=== PATIENT | female | born 1995 | race Hispanic/Latino ===

== ENCOUNTER 2020-10-11 08:03 | Day surgery (SDC) | payer OTHER ==
[2020-10-07 10:45] VITALS: BP 109/71
[2020-10-07 10:58] LABS: BASOPHILS % (AUTO) 0.3 % (0.0-5.0); EOSINOPHILS % (AUTO) 0.4 % (0.0-8.0); LYMPHOCYTES % (AUTO) 17.5 % (21.0-51.0); MEAN CORPUSCULAR HEMOGLOBIN 29.9 pg (27.0-33.0); MEAN CORPUSCULAR HGB CONC 33.3 g/dL (32.0-36.0); MEAN CORPUSCULAR VOLUME 89.9 fL (79-99); MONOCYTES % (AUTO) 5.7 % (3.0-13.0); NEUTROPHILS % (AUTO) 75.8 % (40.0-77.0); PLATELET COUNT (AUTO) 240 K/uL (130-400); RED BLOOD CELL COUNT(AUTO) 4.45 MIL/uL (4.00-5.50); RED CELL DISTRIBUTION WIDTH 12.2 % (11.0-15.5); WHITE BLOOD COUNT (AUTO) 6.9 K/uL (4.8-10.8)
[2020-10-07 11:10] LABS: ALBUMIN 4.2 g/dL (3.5-5.0); BILIRUBIN,TOTAL 0.5 mg/dL (0.2-1.0); CREATININE 0.6 mg/dL (0.5-1.5); POTASSIUM 4.3 mmol/L (3.5-5.1); TOTAL PROTEIN, SERUM 8.1 g/dL (6.0-8.3)
[2020-10-11] VITALS (16 sets, daily range): BP systolic 103–117; BP diastolic 50–69
[~2020-10-11] VITALS: Ht 154.9 cm; Wt 57.6 kg
--- NOTE | 2020-10-11 08:10 | NUR ---
PRE-PROCEDURE RECEIVED TO HOLDING ROOM 2. AWAKE IN NO ACUTE DISTRESS. DENIES PAIN. SIDE RAILS UP X2, BED IN LOWEST POSITION, AND CALL LIGHT W/IN REACH.
[2020-10-11] MEDS ORDERED: LACTATED RINGERS 1000ML 1,000 ML IV ONE (09:02)
[2020-10-11] MEDS: CEFAZOLIN SODIUM 1 GM VIAL IVP SCH ×2 (09:11→10:53)
[2020-10-11] MEDS ORDERED: SCOPOLAMINE HYDROBROMIDE 1 EACH ADH..PATCH TD ONE (09:49)
[2020-10-11] MEDS ORDERED: BUPIVACAINE/PF 0.5% 30ML VIAL ONE (09:59)
[2020-10-11] MEDS ORDERED: GLYCOPYRROLATE 1 MG/5 ML SYRINGE ONE (10:00)
[2020-10-11] MEDS ORDERED: DEXAMETHASONE SOD PHOSPHATE 10MG/ML 1ML VIAL ONE (10:00)
[2020-10-11] MEDS ORDERED: PROPOFOL 10 MG/ML 20ML VIAL IV ONE ×2 (10:00→11:48)
[2020-10-11] MEDS ORDERED: LIDOCAINE PF 2% 5ML ABBOJECT ONE (10:00)
[2020-10-11] MEDS ORDERED: SUCCINYLCHOLINE 200MG/10ML SYR ONE (10:00)
[2020-10-11] MEDS ORDERED: MIDAZOLAM HCL 1 MG/ML 2ML VIAL ONE (10:00)
[2020-10-11] MEDS ORDERED: NEOSTIGMINE 5MG/5ML SYR IV ONE (10:01)
[2020-10-11] MEDS ORDERED: FENTANYL CITRATE PF 50 MCG/1 ML 2ML VIAL ONE ×2 (10:01→11:18)
[2020-10-11] MEDS ORDERED: ROCURONIUM 10MG/1ML SYR 10 MG/ML ML ONE (10:01)
[2020-10-11] MEDS ORDERED: MEPERIDINE-PF 25 MG/ML SYG ONE ×3 (10:01→12:18)
[2020-10-11] MEDS ORDERED: ONDANSETRON HCL 4 MG/2 ML VIAL ONE (10:01)
[2020-10-11] MEDS ORDERED: SUGAMMADEX SODIUM 200 MG/2 ML VIAL IV ONE (11:40)
[2020-10-11] MEDS ORDERED: KETOROLAC TROMETHAMINE 30MG/ML ONE (11:44)
== END 2020-10-11 13:38 | disposition home or self-care (01) ==
LOC: DAH 08:03
PROVIDERS: ATTEND Surgery
DX: K80.12 Calculus of gallbladder with acute and chronic cholecystitis without obstruction (principal); Z80.0 Family history of malignant neoplasm of digestive organs; Z20.828 Contact with and (suspected) exposure to other viral communicable diseases
CPT/HCPCS: 36415; 47562; 80053; 84703; 85025; A4215; A4221; A4222; A4223; A4649 ×2; A4663; A6260; C1769 ×3; C9803; G0168; J0330; J0690; J1100; J1885; J2001; J2175 ×3; J2250; J2405; J2704 ×2; J2710; J3010 ×2; J3490 ×2; J7030; J7120; U0003